=== PATIENT | female | born 1995 | race Caucasian/White ===

== ENCOUNTER → 2022-07-20 | Outpatient (REF) | payer SELFPAY ==
[2022-07-20 14:15] LABS: HEPATITIS B SURFACE ANTIBODY NEGATIVE (POSITIVE)
[2022-07-20 14:27] LABS: HEPATITIS B SURFACE ANTIGEN NEGATIVE (NEGATIVE)
[2022-07-20 14:40] LABS: HIV SCREEN CENTAUR EXPOSED NEGATIVE (NEGATIVE)
== END ==
LOC: M LAB REF 12:26
PROVIDERS: ATTEND Family Medicine Addiction Medicine
DX: Z13.89 Encounter for screening for other disorder (principal); W46.0XXA Contact with hypodermic needle, initial encounter